=== PATIENT | female | born 1985 | race Caucasian/White ===

== ENCOUNTER 2022-02-24 18:15 | Emergency (ER) | payer MEDICARE, MEDICAID ==
[~2022-02-24] VITALS: Ht 165.1 cm; Wt 144.7 kg
[~2022-02-24 18:15] MED LIST: ALBU8.5H17 INH; BUDE10.22 INH; CEFD300C3 PO; INSU100I31 SQ; LIT300C PO; NOVLG SQ; PRED10TA23 PO; PREG50CA64 PO; QUET400T13 PO; RISP1TAB98 PO; RISP4TAB73 PO; SERT-434 PO; TRIA15CR61 TOP; TRIH5TAB3 PO; ZIPR80CA10 PO
[2022-02-24 21:54] VITALS: BP 122/78
--- NOTE | 2022-02-24 22:01 | NUR ---
Patient states she desats at home when her "oxygen" falls out of her nose at home.
== END 2022-02-24 22:11 | disposition home or self-care (01) ==
LOC: ER 18:15
DX: R42 Dizziness and giddiness (principal); E11.9 Type 2 diabetes mellitus without complications; Z87.01 Personal history of pneumonia (recurrent); Z79.4 Long term (current) use of insulin; Z79.899 Other long term (current) drug therapy
CPT/HCPCS: 71046; 99283